=== PATIENT | female | born 1985 | race Caucasian/White ===

== ENCOUNTER 2021-07-12 11:39 | Emergency (ER) | payer MEDICAID ==
[~2021-07-12] VITALS: Ht 163.8 cm; Wt 101.1 kg
[2021-07-12 11:44] VITALS: BP 149/90
--- NOTE | 2021-07-12 11:49 | NUR ---
C-COLLAR PLACED IN TRIAGE, PATIENT WHEELED TO ROOM BY DIPPER FISH.
--- NOTE | 2021-07-12 12:00 | NUR ---
private household worker completed. Pt assisted into gown for xrays likely to be ordered during this stay. C collar in place from triage with good ROM x4 extremities without numbness/tingling. Traumatic event was 1 week ago.
--- NOTE | 2021-07-12 12:35 | NUR ---
Pt assisted to the restroom and then taken by rishabh to CT by technical maintenance technician.
--- NOTE | 2021-07-12 12:50 | NUR ---
Pt back to room without acute changes while off unit.
--- NOTE | 2021-07-12 12:55 | NUR ---
Report given and care transferred to new primary RN at this time. Awaiting CT results.
== END 2021-07-12 14:47 | disposition home or self-care (01) ==
LOC: ED 14:13
DX: S16.1XXA Strain of muscle, fascia and tendon at neck level, initial encounter (principal); S39.012A Strain of muscle, fascia and tendon of lower back, initial encounter; F17.210 Nicotine dependence, cigarettes, uncomplicated; V53.5XXA Driver of pick-up truck or van injured in collision with car, pick-up truck or van in traffic accident, initial encounter; Y93.I9 Activity, other involving external motion; Y92.410 Unspecified street and highway as the place of occurrence of the external cause; Y99.8 Other external cause status
CPT/HCPCS: 70450; 72110; 72125; 99285